=== PATIENT | female | born 1995 | race Hispanic/Latino ===

== ENCOUNTER 2018-06-14 22:33 | Emergency (ER) | payer BC, OTHER ==
[2018-06-15 00:05] LABS: BASOPHILS % (AUTO) 0.8 % (0.0-5.0); EOSINOPHILS % (AUTO) 0.8 % (0.0-8.0); HEMATOCRIT 36.9 % (36-48); LYMPHOCYTES % (AUTO) 14.9 % (21.0-51.0); MEAN CORPUSCULAR HEMOGLOBIN 24.3 pg (27.0-33.0); MEAN CORPUSCULAR HGB CONC 32.2 g/dL (32.0-36.0); MEAN CORPUSCULAR VOLUME 75.6 fL (79-99); MONOCYTES % (AUTO) 3.9 % (3.0-13.0); NEUTROPHILS % (AUTO) 79.6 % (40.0-77.0); PLATELET COUNT (AUTO) 368 K/uL (130-400); RED BLOOD CELL COUNT(AUTO) 4.87 MIL/uL (4.00-5.50); RED CELL DISTRIBUTION WIDTH 15.9 % (11.0-15.5); WHITE BLOOD COUNT (AUTO) 11.6 K/uL (4.8-10.8)
[2018-06-15 00:10] LABS: APPEARANCE,URINE Clear (CLEAR); BILIRUBIN,URINE Negative (NEGATIVE); COLOR,URINE Yellow (YELLOW); GLUCOSE, URINE (UA) Negative (NEGATIVE); KETONES,URINE 40 mg/dL (NEGATIVE); LEUKOCYTE ESTERASE ,URINE Trace (NEGATIVE); NITRATE,URINE Negative (NEGATIVE); OCCULT BLOOD,URINE Large (NEGATIVE); PH,URINE 5.5 (5.0-8.0); PROTEIN,URINE Negative (NEGATIVE)
[2018-06-15 00:11] LABS: CREATININE 0.6 mg/dL (0.5-1.5)
[2018-06-15 00:23] LABS: RBC,URINE 51-100 /HPF (0-1)
[2018-06-15 00:24] LABS: BACTERIA,URINE Rare /HPF (None Seen); MUCUS,URINE Few LPF (None Seen); SQUAMOUS EPITHELIAL CELL,UR 0-2 /HPF (0-2)
== END 2018-06-15 01:33 | disposition home or self-care (01) ==
LOC: EDH 22:33
DX: O20.0 Threatened abortion (principal); Z3A.09 9 weeks gestation of pregnancy; Z79.899 Other long term (current) drug therapy
CPT/HCPCS: 36415; 76801; 80048; 81001; 84702; 85025; 86900; 86901

== ENCOUNTER 2019-11-24 06:14 | Day surgery (SDC) | payer OTHER, MEDICAID ==
[2019-11-23 14:53] LABS: BASOPHILS % (AUTO) 0.2 % (0.0-5.0); EOSINOPHILS % (AUTO) 0.3 % (0.0-8.0); LYMPHOCYTES % (AUTO) 13.4 % (21.0-51.0); MEAN CORPUSCULAR HEMOGLOBIN 23.4 pg (27.0-33.0); MEAN CORPUSCULAR VOLUME 75.4 fL (79-99); MONOCYTES % (AUTO) 4.6 % (3.0-13.0); NEUTROPHILS % (AUTO) 81.2 % (40.0-77.0); PLATELET COUNT (AUTO) 346 K/uL (130-400); RED BLOOD CELL COUNT(AUTO) 5.17 MIL/uL (4.00-5.50); RED CELL DISTRIBUTION WIDTH 16.5 % (11.0-15.5); WHITE BLOOD COUNT (AUTO) 11.6 K/uL (4.8-10.8)
[2019-11-23 16:06] VITALS: BP 128/85
[2019-11-24] VITALS (7 sets, daily range): BP systolic 108–116; BP diastolic 58–73
[~2019-11-24] VITALS: Ht 154.9 cm; Wt 80.6 kg
[~2019-11-24 06:14] MED LIST: CEFAZOLIN SODIUM 1 GM VIAL IVP SCH; LACTATED RINGERS 1000ML 1,000 ML IV SCH; PNV11TAB5 PO; PROG200C11 PO
[2019-11-24] MEDS ORDERED: ONDANSETRON HCL 4 MG/2 ML VIAL ONE (07:37)
[2019-11-24] MEDS ORDERED: EPHEDRINE SULFATE 50 MG/ML AMPULE ONE (07:47)
--- NOTE | 2019-11-24 09:15 | NUR ---
post op pt received post op. pt has peripad clean and dry at this time. pt able to move legs but still has numbness up to knees. spinal site clean and dry free from bleeding
--- NOTE | 2019-11-24 09:35 | NUR ---
ORDERS KAI LINARES RN RECEIVED DISCHARGE ORDERS FROM DR COMER AND TO RESUME HOME MEDICATIONS.
--- NOTE | 2019-11-24 10:16 | NUR ---
DISCHARGE INSTRUCTIONS INSTRUCTIONS GIVEN TO SPOUSE VIA PHONE AND PT VERBALLY. BOTH VOICED UNDERSTANDING.
--- NOTE | 2019-11-24 11:15 | NUR ---
report report given to jim longoria rn for continuation of care
--- NOTE | 2019-11-24 12:00 | NUR ---
DISCHARGE PT GIVEN INSTRUCTIONS BY NKECHI ZIMMERMAN ON PHONE. PT DOING WELL. AMBULATED WITHOUT DIFFICULTY. NO QUESTIONS AT THIS TIME. DISCHARGED.
== END 2019-11-24 12:00 | disposition home or self-care (01) ==
LOC: DAH 06:14
PROVIDERS: ATTEND Obstetrics & Gynecology
DX: O34.31 Maternal care for cervical incompetence, first trimester (principal); O26.891 Other specified pregnancy related conditions, first trimester; J45.909 Unspecified asthma, uncomplicated; K21.9 Gastro-esophageal reflux disease without esophagitis; Z91.018 Allergy to other foods; Z3A.13 13 weeks gestation of pregnancy; Z79.899 Other long term (current) drug therapy; Z11.59 Encounter for screening for other viral diseases
CPT/HCPCS: 36415; 59320; 85025; 86850; 86900; 86901; A4215; A4221; A4222; A4223; A4663; J0690; J2405; J3490; J7120 ×2; U0003